=== PATIENT | female | born 1955 | race Two or more races ===

== ENCOUNTER → 2024-07-25 | Outpatient (CLI) | payer MEDICARE, MEDICAID, SELFPAY ==
[2024-07-25 13:24] LABS: Basophils # (Auto) 0.1 Thou/mm3 (0.0-0.2); Basophils % (Auto) 1 % (0-2.5); Eosinophils # (Auto) 0.2 Thou/mm3 (0.0-0.5); Eosinophils % (Auto) 2 % (0-10); Hematocrit 40.7 % (36.0-46.0); Hemoglobin 13.5 g/dL (12.0-16.0); Immature Granulocytes % (Auto) 0 % (0-0); Immature Granulocytes Auto 0.03 Thou/mm3 (0.00-0.00); Lymphocytes # (Auto) 1.9 Thou/mm3 (1.0-4.8); Lymphocytes % (Auto) 22 % (10-50); Mean Corpuscular HGB Conc 33.2 g/dl (31.0-37.0); Mean Corpuscular Hemoglobin 30.3 pg (25.0-35.0); Mean Corpuscular Volume 92 fL (80-100); Monocytes # (Auto) 0.5 Thou/mm3 (0.0-0.8); Monocytes % (Auto) 6 % (0-12); Neutrophils # (Auto) 5.9 Thou/mm3 (1.8-7.7); Neutrophils % (Auto) 69 % (37-80); Nucleated Red Blood Cell % 0 /100 WBC (0); Platelet Count 269 Thou/mm3 (140-440); RDW Standard Deviation 43.5 fL (36.4-46.3); Red Blood Count 4.45 Miln/mm3 (4.00-5.20); White Blood Count 8.7 Thou/mm3 (3.6-11.0)
[2024-07-25 13:39] LABS: Alanine Aminotransferase 110 U/L (10-49); Albumin, Serum 4.6 gm/dL (3.4-4.8); Albumin/Globulin Ratio 1.8 (1.2-2.2); Alkaline Phosphatase 79 U/L (46-116); Anion Gap 9 (7-16); Aspartate Amino Transferase 116 U/L (0-34); BUN/Creatinine Ratio 13 Ratio (12-20); Bilirubin,Total 0.8 mg/dL (0.3-1.2); Blood Urea Nitrogen 13 mg/dL (9-23); Calcium 9.3 mg/dL (8.3-10.6); Calcium (Corrected) 9.3 mg/dL (8.5-10.1); Carbon Dioxide 25.4 mMol/L (20.0-31.0); Chloride 101 mMol/L (98-107); Globulin 2.6 gm/dL (2.3-3.5); Glucose 196 mg/dL (74-106); Osmolality,Calculated 275 (275-295); Potassium 4.1 mMol/L (3.4-5.1); Sodium 135 mMol/L (136-145); Total Protein 7.2 gm/dL (5.7-8.2); eGFR > 60 See Note
== END | disposition home or self-care (01) ==
LOC: SCTO 11:35
PROVIDERS: PCP Family Medicine; Referring Provider Nurse Practitioner Family; Visit Provider Nurse Practitioner Family
DX: C50.512 Malignant neoplasm of lower-outer quadrant of left female breast (principal); C73 Malignant neoplasm of thyroid gland
CPT/HCPCS: 36415; 80053; 85025

== ENCOUNTER → 2024-07-26 | Outpatient (CLI) | payer MEDICARE, MEDICAID, SELFPAY ==
--- NOTE | 2024-07-26 13:30 | XR_ITS ---
Examination: Bilateral breast MRI without intravenous contrast Bilateral breast MRI with intravenous contrast Exam date and time: July 26, 2024 1420 hours INDICATIONS: Diagnosis malignant neoplasm lower outer quadrant left female breast, malignant neoplasm thyroid gland Left mastectomy 7 years ago TECHNIQUE AND FINDINGS: Multiple bilateral breast MRI images pre and post 15 cc gadolinium Scar formation and skin thickening left breast consistent with patient's history treated left breast cancer Scattered areas of fibroglandular density. Minimal background breast enhancement 3:00 cystic area left breast 2 x 1.5 cm which may represent seroma, clinical correlation advised Postcontrast images demonstrate no focus of rapid wash-in and washout No dominant breast mass lesion No chest wall mass No pathologic axillary lymphadenopathy IMPRESSION: BI-RADS Category 2: Benign findings
== END | disposition home or self-care (01) ==
LOC: SMRI 13:28
PROVIDERS: PCP Family Medicine; Referring Provider Nurse Practitioner Family; Visit Provider Nurse Practitioner Family
DX: C50.512 Malignant neoplasm of lower-outer quadrant of left female breast (principal); C73 Malignant neoplasm of thyroid gland
CPT/HCPCS: 77049; A9579; C8908

== ENCOUNTER 2024-08-10 08:45 | Outpatient (RCR) | payer MEDICARE, MEDICAID, SELFPAY | END 2024-08-22 23:59 | disposition home or self-care (01) | LOC: SCTC 08:45 | PROVIDERS: PCP Family Medicine; Referring Provider Family Medicine; Visit Provider Nurse Practitioner Family | DX: Z08 Encounter for follow-up examination after completed treatment for malignant neoplasm (principal); Z85.3 Personal history of malignant neoplasm of breast; Z85.850 Personal history of malignant neoplasm of thyroid; R91.1 Solitary pulmonary nodule | CPT/HCPCS: 99212; 99424; 99425; G0463 ==

== ENCOUNTER → 2024-08-18 | Outpatient (CLI) | payer MEDICARE, MEDICAID, SELFPAY ==
--- NOTE | 2024-08-18 09:00 | XR_ITS ---
Examination: Breast ultrasound, unilateral, left complete Date and time of exam: August 18, 2024 0915 hours INDICATIONS: Left breast pain one month, personal history left breast cancer, history multiple left breast cyst aspirations of 4:00 region, seroma accumulation Technique: Real-time cedillo scale ultrasonographic imaging performed left breast including all 4 quadrants as well as nipple retroareolar and axillary region. Findings: 3:00 seroma again noted, 1.5 x 0.7 x 1.9 cm IMPRESSION: 3:00 seroma again noted, 1.5 x 0.7 x 1.96
--- NOTE | 2024-08-18 09:14 | XR_ITS ---
Examination: Screening digital mammography, unilateral right Computer aided detection 3-D breast Tomosynthesis, unilateral Date and time of exam: August 18, 2024 0945 hours Compared to mammograms dating to October 06, 2016 Indication: Screening, personal history left breast cancer Technique: Nonmagnified MLO, CC views of the right breast to been obtained, reconstructed from 3-D Tomosynthesis images. R2 computer aided detection program utilized for evaluation of suspicious masses and/or abnormal calcifications. 3-D Tomosynthesis images obtained. Findings: Patient refused left mammography Scattered areas of fibroglandular density right breast Benign calcifications No interval suspicious masses Impression: BI-RADS category II Benign findings Recommend 1 year follow-up mammogram.
== END | disposition home or self-care (01) ==
LOC: CDIM 08:36
PROVIDERS: PCP Family Medicine; Referring Provider Nurse Practitioner Family; Visit Provider Nurse Practitioner Family
DX: Z12.31 Encounter for screening mammogram for malignant neoplasm of breast (principal); R92.323 Mammographic fibroglandular density, bilateral breasts; R92.1 Mammographic calcification found on diagnostic imaging of breast; S20.02XA Contusion of left breast, initial encounter; X58.XXXA Exposure to other specified factors, initial encounter; C50.512 Malignant neoplasm of lower-outer quadrant of left female breast
CPT/HCPCS: 76641; 77063; 77067

== ENCOUNTER 2024-09-21 09:03 | Outpatient (RCR) | payer MEDICARE, MEDICAID, SELFPAY ==
[2024-09-20 15:24] LABS: Basophils % (Auto) 1 % (0-2.5); Eosinophils # (Auto) 0.1 Thou/mm3 (0.0-0.5); Eosinophils % (Auto) 2 % (0-10); Hematocrit 36.9 % (36.0-46.0); Hemoglobin 12.7 g/dL (12.0-16.0); Immature Granulocytes % (Auto) 0 % (0-0); Immature Granulocytes Auto 0.02 Thou/mm3 (0.00-0.00); Lymphocytes # (Auto) 1.8 Thou/mm3 (1.0-4.8); Lymphocytes % (Auto) 22 % (10-50); Mean Corpuscular HGB Conc 34.4 g/dl (31.0-37.0); Mean Corpuscular Hemoglobin 30.4 pg (25.0-35.0); Mean Corpuscular Volume 88 fL (80-100); Monocytes # (Auto) 0.4 Thou/mm3 (0.0-0.8); Monocytes % (Auto) 6 % (0-12); Neutrophils # (Auto) 5.6 Thou/mm3 (1.8-7.7); Neutrophils % (Auto) 70 % (37-80); Nucleated Red Blood Cell % 0 /100 WBC (0); Platelet Count 236 Thou/mm3 (140-440); RDW Standard Deviation 41.6 fL (36.4-46.3); Red Blood Count 4.18 Miln/mm3 (4.00-5.20)
[2024-09-20 15:44] LABS: Alanine Aminotransferase 72 U/L (10-49); Albumin, Serum 4.4 gm/dL (3.4-4.8); Albumin/Globulin Ratio 1.8 (1.2-2.2); Alkaline Phosphatase 66 U/L (46-116); Anion Gap 8 (7-16); Aspartate Amino Transferase 56 U/L (0-34); BUN/Creatinine Ratio 14 Ratio (12-20); Bilirubin,Total 0.7 mg/dL (0.3-1.2); Blood Urea Nitrogen 13 mg/dL (9-23); Calcium 8.4 mg/dL (8.3-10.6); Calcium (Corrected) 8.4 mg/dL (8.5-10.1); Carbon Dioxide 25.9 mMol/L (20.0-31.0); Chloride 102 mMol/L (98-107); Creatinine (Component) 0.9 mg/dL (0.6-1.3); Globulin 2.5 gm/dL (2.3-3.5); Glucose 273 mg/dL (74-106); Osmolality,Calculated 282 (275-295); Potassium 3.6 mMol/L (3.4-5.1); Sodium 136 mMol/L (136-145); Total Protein 6.9 gm/dL (5.7-8.2); eGFR > 60 See Note
[2024-09-20 16:01] LABS: CA 15-3 7.2 U/mL (<32.4); Carcinoembryonic Antigen < 0.5 ng/mL (0.0-5.0)
== END 2024-09-22 23:59 | disposition home or self-care (01) ==
LOC: SCTC 09:03
PROVIDERS: PCP Family Medicine; Referring Provider Family Medicine; Visit Provider Radiology Therapeutic Radiology
DX: Z08 Encounter for follow-up examination after completed treatment for malignant neoplasm (principal); Z85.3 Personal history of malignant neoplasm of breast; Z90.12 Acquired absence of left breast and nipple; Z85.850 Personal history of malignant neoplasm of thyroid; Z92.3 Personal history of irradiation; E89.0 Postprocedural hypothyroidism; Z79.890 Hormone replacement therapy
CPT/HCPCS: 36591; 80053; 82378; 85025; 86300; 99213; A4216; J1642; G0463

== ENCOUNTER 2024-11-14 13:10 | Outpatient (RCR) | payer MEDICARE, MEDICAID, SELFPAY ==
[2024-11-13 14:24] LABS: Basophils # (Auto) 0.1 Thou/mm3 (0.0-0.2); Basophils % (Auto) 1 % (0-2.5); Eosinophils # (Auto) 0.2 Thou/mm3 (0.0-0.5); Eosinophils % (Auto) 3 % (0-10); Hematocrit 39.4 % (36.0-46.0); Hemoglobin 13.2 g/dL (12.0-16.0); Immature Granulocytes % (Auto) 0 % (0-0); Immature Granulocytes Auto 0.03 Thou/mm3 (0.00-0.00); Lymphocytes # (Auto) 1.8 Thou/mm3 (1.0-4.8); Lymphocytes % (Auto) 21 % (10-50); Mean Corpuscular HGB Conc 33.5 g/dl (31.0-37.0); Mean Corpuscular Hemoglobin 29.7 pg (25.0-35.0); Mean Corpuscular Volume 89 fL (80-100); Monocytes # (Auto) 0.5 Thou/mm3 (0.0-0.8); Monocytes % (Auto) 6 % (0-12); Neutrophils % (Auto) 70 % (37-80); Nucleated Red Blood Cell % 0 /100 WBC (0); Platelet Count 257 Thou/mm3 (140-440); RDW Standard Deviation 41.5 fL (36.4-46.3); Red Blood Count 4.45 Miln/mm3 (4.00-5.20); White Blood Count 8.6 Thou/mm3 (3.6-11.0)
[2024-11-13 14:39] LABS: Alanine Aminotransferase 81 U/L (10-49); Albumin, Serum 4.3 gm/dL (3.4-4.8); Albumin/Globulin Ratio 1.5 (1.2-2.2); Alkaline Phosphatase 74 U/L (46-116); Anion Gap 11 (7-16); Aspartate Amino Transferase 80 U/L (0-34); BUN/Creatinine Ratio 13 Ratio (12-20); Bilirubin,Total 1.1 mg/dL (0.3-1.2); Blood Urea Nitrogen 12 mg/dL (9-23); Calcium 9.1 mg/dL (8.3-10.6); Calcium (Corrected) 9.1 mg/dL (8.5-10.1); Carbon Dioxide 22.9 mMol/L (20.0-31.0); Chloride 103 mMol/L (98-107); Creatinine (Component) 0.9 mg/dL (0.6-1.3); Globulin 2.8 gm/dL (2.3-3.5); Glucose 260 mg/dL (74-106); Osmolality,Calculated 282 (275-295); Potassium 3.7 mMol/L (3.4-5.1); Sodium 137 mMol/L (136-145); Total Protein 7.1 gm/dL (5.7-8.2); eGFR > 60 See Note
[2024-11-13 15:04] LABS: CA 15-3 10.2 U/mL (<32.4); Carcinoembryonic Antigen 1.3 ng/mL (0.0-5.0)
== END 2024-11-20 23:59 | disposition home or self-care (01) ==
LOC: SCTC 13:10
PROVIDERS: Nurse Practitioner Family; Referring Provider Internal Medicine Hematology & Oncology; Visit Provider Internal Medicine Hematology & Oncology
DX: Z08 Encounter for follow-up examination after completed treatment for malignant neoplasm (principal); Z85.3 Personal history of malignant neoplasm of breast; Z85.850 Personal history of malignant neoplasm of thyroid; Z90.12 Acquired absence of left breast and nipple; N64.89 Other specified disorders of breast; R91.1 Solitary pulmonary nodule; Z63.6 Dependent relative needing care at home
CPT/HCPCS: 36591; 80053; 82378; 85025; 86300; 99211; 99212; A4216; J1642; G0463

== ENCOUNTER 2024-12-21 13:40 | Outpatient (RCR) | payer MEDICARE, MEDICAID, SELFPAY | END 2025-01-20 23:59 | disposition home or self-care (01) | LOC: SCTC 13:40 | PROVIDERS: PCP Family Medicine; Referring Provider Family Medicine; Visit Provider Nurse Practitioner Family | DX: N64.89 Other specified disorders of breast (principal); Z85.850 Personal history of malignant neoplasm of thyroid; Z79.890 Hormone replacement therapy; R91.1 Solitary pulmonary nodule; Z85.3 Personal history of malignant neoplasm of breast | CPT/HCPCS: 99212; G0463 ==

== ENCOUNTER → 2025-01-11 | Outpatient (CLI) | payer MEDICARE, MEDICAID, SELFPAY ==
--- NOTE | 2025-01-11 13:15 | XR_ITS ---
EXAMINATION: PET/CT FUSION SKULL TO THIGH EXAM DATE AND TIME: January 11, 2025 1358 hours Comparison 04/27/2024, MR breast July 26, 2024, CT chest October 25, 2023 INDICATIONS: Diagnosis thyroid carcinoma post treatment CTDI:vol (mGy) 5.72 DLP: (mGycm) 522.85 PROCEDURE: 15.5 mCi FDG was administered intravenously To allow for distribution and uptake of radiotracer, the patient was allowed to rest quietly in a shielded room. Imaging was performed on an integrated 16-slice PET/CT scanner, with scanning from the skull base to the mid thigh. Serum blood glucose at the time of the injection was measured 110 mg/dL. CT scanning was performed without oral or intravenous contrast material. FINDINGS: Head and Neck: There is no patt hypermetabolism in the neck. The visualized portions of the brain are normal in appearance on CT. Chest: Interval hypermetabolic anterior mediastinal 14 mm lymph node Abdomen and Pelvis: There is no patt hypermetabolism in retroperitoneal or pelvic chains. The spleen is normal in size and FDG avidity. Musculoskeletal: Marrow uptake is within normal range. IMPRESSION: Interval hypermetabolic anterior mediastinal 14 mm lymph node, recommend high-resolution CT chest post intravenous contrast follow-up
== END | disposition home or self-care (01) ==
LOC: CDIM 12:46
PROVIDERS: PCP Family Medicine; Referring Provider Nurse Practitioner Family; Visit Provider Nurse Practitioner Family
DX: C50.512 Malignant neoplasm of lower-outer quadrant of left female breast (principal); C73 Malignant neoplasm of thyroid gland
CPT/HCPCS: 78815; A9552

== ENCOUNTER → 2025-01-16 | Outpatient (CLI) | payer MEDICARE, MEDICAID, SELFPAY ==
[2025-01-12 11:27] LABS: Basophils % (Auto) 1 % (0-2.5); Eosinophils # (Auto) 0.2 Thou/mm3 (0.0-0.5); Eosinophils % (Auto) 3 % (0-10); Hematocrit 42.3 % (36.0-46.0); Hemoglobin 14.8 g/dL (12.0-16.0); Immature Granulocytes % (Auto) 0 % (0-0); Immature Granulocytes Auto 0.02 Thou/mm3 (0.00-0.00); Lymphocytes # (Auto) 1.6 Thou/mm3 (1.0-4.8); Lymphocytes % (Auto) 23 % (10-50); Mean Corpuscular Hemoglobin 30.1 pg (25.0-35.0); Mean Corpuscular Volume 86 fL (80-100); Monocytes # (Auto) 0.4 Thou/mm3 (0.0-0.8); Monocytes % (Auto) 6 % (0-12); Neutrophils # (Auto) 4.7 Thou/mm3 (1.8-7.7); Neutrophils % (Auto) 68 % (37-80); Nucleated Red Blood Cell % 0 /100 WBC (0); Platelet Count 281 Thou/mm3 (140-440); RDW Standard Deviation 40.6 fL (36.4-46.3); Red Blood Count 4.91 Miln/mm3 (4.00-5.20)
[2025-01-12 11:46] LABS: Partial Thromboplastin Time 29.1 Seconds (22.0-36.0); Prothrombin Time 11.4 Seconds (9.0-12.2)
--- NOTE | 2025-01-16 09:30 | XR_ITS ---
Examination: Ultrasound-guided aspiration left breast 3:00 seroma Left breast sonogram limited Date and time: January 16, 2025 1027 hours INDICATIONS: History left breast cancer, history 3:00 seroma 15 x 7 x 19 mm on left breast sonogram August 18, 2024 TECHNIQUE AND FINDINGS: Sonographic images left breast 3:00 demonstrate 2.2 cm seroma Informed consent provided. Timeout performed. Skin prepped over the left breast sterile drape applied hand hygiene ultrasound sterile technique 1% lidocaine administered for local anesthesia Utilizing ultrasonographic guidance complete aspiration of the seroma, 3 cc clear yellow fluid withdrawn IMPRESSION: Successful ultrasound-guided aspiration left breast 3:00 seroma
== END | disposition home or self-care (01) ==
LOC: SDIM 08:45
PROVIDERS: Radiology Diagnostic Radiology; PCP Family Medicine; Referring Provider Nurse Practitioner Family; Visit Provider Nurse Practitioner Family
DX: R92.8 Other abnormal and inconclusive findings on diagnostic imaging of breast (principal); C50.512 Malignant neoplasm of lower-outer quadrant of left female breast; C73 Malignant neoplasm of thyroid gland; Z01.812 Encounter for preprocedural laboratory examination
CPT/HCPCS: 19083; 36415; 85025; 85610; 85730

== ENCOUNTER 2025-02-19 13:29 | Outpatient (RCR) | payer MEDICARE, MEDICAID, SELFPAY ==
[2025-01-23 15:02] LABS: Basophils % (Auto) 1 % (0-2.5); Eosinophils # (Auto) 0.3 Thou/mm3 (0.0-0.5); Eosinophils % (Auto) 4 % (0-10); Hematocrit 37.9 % (36.0-46.0); Hemoglobin 13.6 g/dL (12.0-16.0); Immature Granulocytes % (Auto) 0 % (0-0); Immature Granulocytes Auto 0.02 Thou/mm3 (0.00-0.00); Lymphocytes # (Auto) 1.7 Thou/mm3 (1.0-4.8); Lymphocytes % (Auto) 21 % (10-50); Mean Corpuscular HGB Conc 35.9 g/dl (31.0-37.0); Mean Corpuscular Hemoglobin 30.5 pg (25.0-35.0); Mean Corpuscular Volume 85 fL (80-100); Monocytes # (Auto) 0.6 Thou/mm3 (0.0-0.8); Monocytes % (Auto) 7 % (0-12); Neutrophils # (Auto) 5.6 Thou/mm3 (1.8-7.7); Neutrophils % (Auto) 67 % (37-80); Nucleated Red Blood Cell % 0 /100 WBC (0); Platelet Count 272 Thou/mm3 (140-440); RDW Standard Deviation 40.3 fL (36.4-46.3); Red Blood Count 4.46 Miln/mm3 (4.00-5.20); White Blood Count 8.3 Thou/mm3 (3.6-11.0)
[2025-01-23 15:23] LABS: Alanine Aminotransferase 71 U/L (10-49); Albumin, Serum 4.3 gm/dL (3.4-4.8); Albumin/Globulin Ratio 1.7 (1.2-2.2); Alkaline Phosphatase 69 U/L (46-116); Anion Gap 13 (7-16); Aspartate Amino Transferase 59 U/L (0-34); BUN/Creatinine Ratio 15 Ratio (12-20); Bilirubin,Total 1.4 mg/dL (0.3-1.2); Blood Urea Nitrogen 12 mg/dL (9-23); Calcium 8.1 mg/dL (8.3-10.6); Calcium (Corrected) 8.1 mg/dL (8.5-10.1); Carbon Dioxide 24.7 mMol/L (20.0-31.0); Chloride 105 mMol/L (98-107); Creatinine (Component) 0.8 mg/dL (0.6-1.3); Globulin 2.6 gm/dL (2.3-3.5); Glucose 166 mg/dL (74-106); Osmolality,Calculated 288 (275-295); Potassium 3.8 mMol/L (3.4-5.1); Sodium 143 mMol/L (136-145); Total Protein 6.9 gm/dL (5.7-8.2); eGFR > 60 See Note
[2025-01-23 15:27] LABS: Carcinoembryonic Antigen < 0.5 ng/mL (0.0-5.0)
[2025-01-23 15:41] LABS: CA 15-3 5.5 U/mL (<32.4)
[2025-02-19 15:15] LABS: Basophils # (Auto) 0.1 Thou/mm3 (0.0-0.2); Basophils % (Auto) 1 % (0-2.5); Eosinophils # (Auto) 0.2 Thou/mm3 (0.0-0.5); Eosinophils % (Auto) 3 % (0-10); Hemoglobin 12.7 g/dL (12.0-16.0); Immature Granulocytes % (Auto) 0 % (0-0); Immature Granulocytes Auto 0.03 Thou/mm3 (0.00-0.00); Lymphocytes # (Auto) 1.7 Thou/mm3 (1.0-4.8); Lymphocytes % (Auto) 21 % (10-50); Mean Corpuscular HGB Conc 34.3 g/dl (31.0-37.0); Mean Corpuscular Hemoglobin 30.1 pg (25.0-35.0); Mean Corpuscular Volume 88 fL (80-100); Monocytes # (Auto) 0.5 Thou/mm3 (0.0-0.8); Monocytes % (Auto) 6 % (0-12); Neutrophils # (Auto) 5.6 Thou/mm3 (1.8-7.7); Neutrophils % (Auto) 69 % (37-80); Nucleated Red Blood Cell % 0 /100 WBC (0); Platelet Count 272 Thou/mm3 (140-440); RDW Standard Deviation 41.6 fL (36.4-46.3); Red Blood Count 4.22 Miln/mm3 (4.00-5.20); White Blood Count 8.2 Thou/mm3 (3.6-11.0)
[2025-02-19 15:37] LABS: Alanine Aminotransferase 50 U/L (10-49); Albumin, Serum 4.1 gm/dL (3.4-4.8); Albumin/Globulin Ratio 1.6 (1.2-2.2); Alkaline Phosphatase 63 U/L (46-116); Anion Gap 8 (7-16); Aspartate Amino Transferase 34 U/L (0-34); BUN/Creatinine Ratio 12 Ratio (12-20); Bilirubin,Total 1.1 mg/dL (0.3-1.2); Blood Urea Nitrogen 11 mg/dL (9-23); Calcium 8.1 mg/dL (8.3-10.6); Calcium (Corrected) 8.1 mg/dL (8.5-10.1); Carbon Dioxide 23.9 mMol/L (20.0-31.0); Chloride 109 mMol/L (98-107); Creatinine (Component) 0.9 mg/dL (0.6-1.3); Globulin 2.6 gm/dL (2.3-3.5); Glucose 171 mg/dL (74-106); Osmolality,Calculated 284 (275-295); Potassium 3.8 mMol/L (3.4-5.1); Sodium 141 mMol/L (136-145); Total Protein 6.7 gm/dL (5.7-8.2); eGFR > 60 See Note
[2025-02-19 15:51] LABS: CA 15-3 6.7 U/mL (<32.4); Carcinoembryonic Antigen < 0.5 ng/mL (0.0-5.0)
== END 2025-02-19 23:59 | disposition home or self-care (01) ==
LOC: SCTC 13:29
PROVIDERS: Internal Medicine Hematology & Oncology; PCP Family Medicine; Referring Provider Family Medicine; Visit Provider Radiology Therapeutic Radiology
DX: Z08 Encounter for follow-up examination after completed treatment for malignant neoplasm (principal); Z85.3 Personal history of malignant neoplasm of breast; Z85.850 Personal history of malignant neoplasm of thyroid; N64.89 Other specified disorders of breast; Z90.12 Acquired absence of left breast and nipple; E89.0 Postprocedural hypothyroidism; Z79.890 Hormone replacement therapy; R91.1 Solitary pulmonary nodule
CPT/HCPCS: 36591; 80053; 82378; 85025; 86300; A4216; J1642

== ENCOUNTER 2025-03-14 08:34 | Outpatient (RCR) | payer MEDICARE, MEDICAID, SELFPAY ==
[2025-03-14 10:05] LABS: Basophils # (Auto) 0.1 Thou/mm3 (0.0-0.2); Basophils % (Auto) 1 % (0-2.5); Eosinophils # (Auto) 0.1 Thou/mm3 (0.0-0.5); Eosinophils % (Auto) 2 % (0-10); Hematocrit 39.8 % (36.0-46.0); Hemoglobin 13.9 g/dL (12.0-16.0); Immature Granulocytes Auto 0.02 Thou/mm3 (0.00-0.00); Lymphocytes # (Auto) 1.6 Thou/mm3 (1.0-4.8); Lymphocytes % (Auto) 18 % (10-50); Mean Corpuscular HGB Conc 34.9 g/dl (31.0-37.0); Mean Corpuscular Hemoglobin 30.2 pg (25.0-35.0); Mean Corpuscular Volume 86 fL (80-100); Monocytes # (Auto) 0.5 Thou/mm3 (0.0-0.8); Monocytes % (Auto) 6 % (0-12); Neutrophils # (Auto) 6.5 Thou/mm3 (1.8-7.7); Neutrophils % (Auto) 74 % (37-80); Nucleated Red Blood Cell # 0.00 Thou/mm3 (0.00-0.00); Nucleated Red Blood Cell % 0 /100 WBC (0); Platelet Count 250 Thou/mm3 (140-440); RDW Standard Deviation 40.7 fL (36.4-46.3); Red Blood Count 4.61 Miln/mm3 (4.00-5.20); White Blood Count 8.8 Thou/mm3 (3.6-11.0)
[2025-03-14 10:26] LABS: Alanine Aminotransferase 34 U/L (10-49); Albumin, Serum 4.5 gm/dL (3.4-4.8); Albumin/Globulin Ratio 1.8 (1.2-2.2); Alkaline Phosphatase 69 U/L (46-116); Anion Gap 9 (7-16); Aspartate Amino Transferase 30 U/L (0-34); BUN/Creatinine Ratio 11 Ratio (12-20); Bilirubin,Total 1.4 mg/dL (0.3-1.2); Blood Urea Nitrogen 9 mg/dL (9-23); Calcium 9.6 mg/dL (8.3-10.6); Calcium (Corrected) 9.6 mg/dL (8.5-10.1); Carbon Dioxide 24.6 mMol/L (20.0-31.0); Chloride 106 mMol/L (98-107); Creatinine (Component) 0.8 mg/dL (0.6-1.3); Free T4 (Free Thyroxine) 1.68 ng/dL (0.89-1.76); Globulin 2.5 gm/dL (2.3-3.5); Glucose 125 mg/dL (74-106); Osmolality,Calculated 279 (275-295); Potassium 3.8 mMol/L (3.4-5.1); Sodium 140 mMol/L (136-145); Thyroid Stimulating Hormone 0.71 uIU/mL (0.55-4.78); Total Protein 7.0 gm/dL (5.7-8.2); eGFR > 60 See Note
[2025-03-14 10:40] LABS: CA 15-3 4.6 U/mL (<32.4); Carcinoembryonic Antigen < 0.5 ng/mL (0.0-5.0)
[2025-03-23 06:19] LABS: Thyroglobulin <0.1 ng/mL; Thyroglobulin Antibodies SEE SEP RPT IU/mL (< OR = 1)
[2025-03-23 06:26] LABS: Thyroglobulin Antibodies* DUPLICATE TEST
== END 2025-03-22 23:59 | disposition home or self-care (01) ==
LOC: SCTC 08:34
PROVIDERS: Radiology Therapeutic Radiology; PCP Family Medicine; Referring Provider Family Medicine; Visit Provider Nurse Practitioner Family
DX: R20.0 Anesthesia of skin (principal); Z08 Encounter for follow-up examination after completed treatment for malignant neoplasm; Z85.3 Personal history of malignant neoplasm of breast; Z85.850 Personal history of malignant neoplasm of thyroid; I89.0 Lymphedema, not elsewhere classified; R91.1 Solitary pulmonary nodule
CPT/HCPCS: 36591; 80053; 82378; 84432; 84439; 84443; 85025; 86300; 86800; 99212; A4216; J1642; G0463

== ENCOUNTER → 2025-04-03 | Outpatient (CLI) | payer MEDICARE, MEDICAID, SELFPAY ==
[2025-04-03 12:56] LABS: Free T4 (Free Thyroxine) 1.21 ng/dL (0.89-1.76); Thyroid Stimulating Hormone 2.72 uIU/mL (0.55-4.78)
[2025-04-06 13:48] LABS: Thyroglobulin Antibodies <1 IU/mL (< OR = 1)
[2025-04-09 06:49] LABS: Thyroglobulin <0.1 ng/mL
== END | disposition home or self-care (01) ==
LOC: SCTO 11:25
PROVIDERS: PCP Family Medicine; Referring Provider Radiology Therapeutic Radiology; Visit Provider Radiology Therapeutic Radiology
DX: C50.512 Malignant neoplasm of lower-outer quadrant of left female breast (principal); C73 Malignant neoplasm of thyroid gland
CPT/HCPCS: 36415; 84432; 84439; 84443; 86800

== ENCOUNTER 2025-04-10 13:26 | Outpatient (RCR) | payer MEDICARE, MEDICAID, SELFPAY ==
--- NOTE | 2025-04-10 14:52 | CTCFLWUP_ITS ---
[facility] [address] [place], [place] [address] FOLLOW-UP NOTE Date: 04/10/2025 MR#: [id number] Name: DIGNA STANFORD : 1955 Dx: C50.512 Malignant neoplasm of lower-outer quadrant of left female breast Identification. History of stage Ia ER negative MA negative HER2/yael overexpressed left breast CA 10/06/2016. After partial mastectomy underwent 6 cycles of TCH 1 year of Herceptin completed 2017. Postop XRT completed 07/23/2017. Being followed by RASHEL Glover and Dr. Jackson. PET scan 01/11/2025 interval hypermetabolic anterior mediastinal 14 mm lymph node. Left breast biopsy 3:00 cytology no malignancy seen. Ultrasound aspiration of the 3:00 seroma. 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 Whole-body iodine scan 2019 following 100 mCi no sign of mets. Labs 03/14/2025 thyroglobulin less than 0.1 euthyroid at Synthroid 112 mcg. Examined the patient today reveals no sign of recurrence in the neck lungs clear. A#1. History of stage II papillary thyroid carcinoma status post total thyroidectomy and radioactive iodine 2018. On 112 mcg of Synthroid. Euthyroid with low thyroglobulin and no sign of recurrence. Asked her to return in 4 months. A#2. History of stage Ia receptor negative HER2/yael overexpressed left breast CA. 2016 being followed by [facility]/Dr. Jcakson Electronically signed by: Evaristo Leonardo M.D. 04/10/2025 2:50 PM
== END 2025-04-22 23:59 | disposition home or self-care (01) ==
LOC: SCTC 13:26
PROVIDERS: PCP Family Medicine; Referring Provider Family Medicine; Visit Provider Radiology Therapeutic Radiology
DX: Z08 Encounter for follow-up examination after completed treatment for malignant neoplasm (principal); Z85.3 Personal history of malignant neoplasm of breast; Z85.850 Personal history of malignant neoplasm of thyroid; Z90.12 Acquired absence of left breast and nipple; Z92.21 Personal history of antineoplastic chemotherapy; Z92.3 Personal history of irradiation; N64.89 Other specified disorders of breast; E89.0 Postprocedural hypothyroidism; Z79.890 Hormone replacement therapy
CPT/HCPCS: 99213; G0463

== ENCOUNTER → 2025-04-24 | Outpatient (CLI) | payer MEDICARE, MEDICAID, SELFPAY ==
[2025-04-24 14:31] LABS: Basophils # (Auto) 0.0 Thou/mm3 (0.0-0.2); Basophils % (Auto) 1 % (0-2.5); Eosinophils # (Auto) 0.1 Thou/mm3 (0.0-0.5); Eosinophils % (Auto) 3 % (0-10); Hematocrit 41.7 % (36.0-46.0); Hemoglobin 13.9 g/dL (12.0-16.0); Immature Granulocytes Auto 0.01 Thou/mm3 (0.00-0.00); Lymphocytes # (Auto) 1.4 Thou/mm3 (1.0-4.8); Lymphocytes % (Auto) 26 % (10-50); Mean Corpuscular HGB Conc 33.3 g/dl (31.0-37.0); Mean Corpuscular Hemoglobin 30.0 pg (25.0-35.0); Mean Corpuscular Volume 90 fL (80-100); Monocytes # (Auto) 0.4 Thou/mm3 (0.0-0.8); Monocytes % (Auto) 8 % (0-12); Neutrophils # (Auto) 3.3 Thou/mm3 (1.8-7.7); Neutrophils % (Auto) 62 % (37-80); Nucleated Red Blood Cell # 0.00 Thou/mm3 (0.00-0.00); Nucleated Red Blood Cell % 0 /100 WBC (0); Platelet Count 230 Thou/mm3 (140-440); RDW Standard Deviation 44.1 fL (36.4-46.3); Red Blood Count 4.64 Miln/mm3 (4.00-5.20); White Blood Count 5.3 Thou/mm3 (3.6-11.0)
[2025-04-24 14:50] LABS: Alanine Aminotransferase 45 U/L (10-49); Albumin, Serum 4.4 gm/dL (3.4-4.8); Albumin/Globulin Ratio 1.8 (1.2-2.2); Alkaline Phosphatase 64 U/L (46-116); Anion Gap 10 (7-16); Aspartate Amino Transferase 43 U/L (0-34); BUN/Creatinine Ratio 16 Ratio (12-20); Bilirubin,Total 1.1 mg/dL (0.3-1.2); Blood Urea Nitrogen 14 mg/dL (9-23); Calcium 9.6 mg/dL (8.3-10.6); Calcium (Corrected) 9.6 mg/dL (8.5-10.1); Carbon Dioxide 28.3 mMol/L (20.0-31.0); Chloride 104 mMol/L (98-107); Creatinine (Component) 0.9 mg/dL (0.6-1.3); Globulin 2.4 gm/dL (2.3-3.5); Glucose 125 mg/dL (74-106); Osmolality,Calculated 284 (275-295); Potassium 4.2 mMol/L (3.4-5.1); Sodium 142 mMol/L (136-145); Total Protein 6.8 gm/dL (5.7-8.2); eGFR > 60 See Note
== END | disposition home or self-care (01) ==
LOC: SCTO 12:49
PROVIDERS: PCP Family Medicine; Referring Provider Nurse Practitioner Family; Visit Provider Nurse Practitioner Family
DX: C50.512 Malignant neoplasm of lower-outer quadrant of left female breast (principal); C73 Malignant neoplasm of thyroid gland
CPT/HCPCS: 36415; 80053; 85025

== ENCOUNTER → 2025-05-01 | Outpatient (CLI) | payer MEDICARE, MEDICAID, SELFPAY ==
--- NOTE | 2025-05-01 09:46 | XR_ITS ---
Examination: CT chest with intravenous contrast 2-D sagittal and coronal reconstructions Exam date and time: May 01, 2025 1029 hours, comparison October 25, 2023 INDICATIONS: Diagnosis malignant neoplasm left breast 2017 CTDI:vol (mGy) 10.1 DLP: (mGycm) 351 Technique: Multiple axial sections of the thorax have been obtained. Sections have been obtained, 3 mm slice thickness. Mediastinal and lung density settings have been obtained. Intravenous contrast administered, 60 cc Isovue-370. 2-D sagittal, coronal images obtained. Low dose protocols were performed. One or more of the following dose reduction techniques were used; automated exposure control, adjustment of the mA and/or KV according to patient size, use of iterative reconstruction technique. Findings: No thoracic aortic aneurysmal dilatation 14 mm lymph node anterior to the ascending thoracic aorta No thoracic aortic aneurysmal dilatation No pulmonary artery emboli 2 mm pulmonary nodule posterior left lung image 181 3 mm pulmonary nodule anterior right lung image 183 2 mm pulmonary nodule lingular segment image 198 No pneumonia or pulmonary edema Probable scar formation left breast axial image 82 No pathologic axillary lymphadenopathy No visualized liver or splenic lesion No pancreatic or adrenal mass IMPRESSION: 14 mm lymph node anterior to the ascending thoracic aorta, please see the PET/CT scan January 11, 2025 Subcentimeter pulmonary nodules as above, recommend 6 month follow-up CT chest without contrast No pneumonia or pulmonary edema
== END | disposition home or self-care (01) ==
LOC: CCTX 09:01
PROVIDERS: PCP Family Medicine; Referring Provider Nurse Practitioner Family; Visit Provider Nurse Practitioner Family
DX: R91.8 Other nonspecific abnormal finding of lung field (principal); C50.512 Malignant neoplasm of lower-outer quadrant of left female breast; C73 Malignant neoplasm of thyroid gland
CPT/HCPCS: 71260; A4649; Q9967

== ENCOUNTER → 2025-05-04 | Outpatient (CLI) | payer MEDICARE, MEDICAID, SELFPAY ==
[2025-05-04 11:11] LABS: Misc Send Out* See Sep Rpt
[2025-05-04 11:40] LABS: Basophils # (Auto) 0.0 Thou/mm3 (0.0-0.2); Basophils % (Auto) 1 % (0-2.5); Eosinophils # (Auto) 0.2 Thou/mm3 (0.0-0.5); Eosinophils % (Auto) 2 % (0-10); Hematocrit 42.6 % (36.0-46.0); Hemoglobin 14.8 g/dL (12.0-16.0); Immature Granulocytes Auto 0.05 Thou/mm3 (0.00-0.00); Lymphocytes # (Auto) 1.6 Thou/mm3 (1.0-4.8); Lymphocytes % (Auto) 20 % (10-50); Mean Corpuscular HGB Conc 34.7 g/dl (31.0-37.0); Mean Corpuscular Hemoglobin 30.7 pg (25.0-35.0); Mean Corpuscular Volume 88 fL (80-100); Monocytes # (Auto) 0.5 Thou/mm3 (0.0-0.8); Monocytes % (Auto) 6 % (0-12); Neutrophils # (Auto) 6.0 Thou/mm3 (1.8-7.7); Neutrophils % (Auto) 71 % (37-80); Nucleated Red Blood Cell # 0.00 Thou/mm3 (0.00-0.00); Nucleated Red Blood Cell % 0 /100 WBC (0); Platelet Count 306 Thou/mm3 (140-440); RDW Standard Deviation 41.8 fL (36.4-46.3); Red Blood Count 4.82 Miln/mm3 (4.00-5.20); White Blood Count 8.4 Thou/mm3 (3.6-11.0)
[2025-05-04 11:57] LABS: Sed Rate (ESR) 11 mm/hr (0-30)
[2025-05-04 12:06] LABS: Alanine Aminotransferase 32 U/L (10-49); Albumin, Serum 4.6 gm/dL (3.4-4.8); Albumin/Globulin Ratio 1.6 (1.2-2.2); Alkaline Phosphatase 61 U/L (46-116); Anion Gap 11 (7-16); Aspartate Amino Transferase 28 U/L (0-34); BUN/Creatinine Ratio 10 Ratio (12-20); Bilirubin,Total 1.4 mg/dL (0.3-1.2); Blood Urea Nitrogen 9 mg/dL (9-23); C-Reactive Protein < 0.5 mg/dL (0.0-0.9); Calcium 9.8 mg/dL (8.3-10.6); Calcium (Corrected) 9.8 mg/dL (8.5-10.1); Carbon Dioxide 24.6 mMol/L (20.0-31.0); Chloride 103 mMol/L (98-107); Creatinine (Component) 0.9 mg/dL (0.6-1.3); Globulin 2.9 gm/dL (2.3-3.5); Glucose 74 mg/dL (74-106); Osmolality,Calculated 275 (275-295); Potassium 3.8 mMol/L (3.4-5.1); Sodium 139 mMol/L (136-145); Total Protein 7.5 gm/dL (5.7-8.2); eGFR > 60 See Note
[2025-05-11 06:32] LABS: Immunoglobulin A 221 mg/dL (70-320); tTG Ab, IgA <1.0 U/mL
== END | disposition home or self-care (01) ==
LOC: COPL 10:29
PROVIDERS: PCP Family Medicine; Referring Provider Specialist; Visit Provider Specialist
DX: R19.7 Diarrhea, unspecified (principal)
CPT/HCPCS: 36415; 80053; 82784; 85025; 85652; 86140; 86364

== ENCOUNTER → 2025-05-07 | Outpatient (CLI) | payer MEDICARE, MEDICAID, SELFPAY ==
[2025-05-14 09:21] LABS: Calprotectin, Stool* 42 mcg/g
== END | disposition home or self-care (01) ==
LOC: SLDO 09:35
PROVIDERS: PCP Specialist; Referring Provider Specialist; Visit Provider Specialist
DX: R19.7 Diarrhea, unspecified (principal)
CPT/HCPCS: 83993

== ENCOUNTER 2025-05-28 13:19 | Outpatient (RCR) | payer MEDICARE, MEDICAID, SELFPAY | END 2025-06-22 23:59 | disposition home or self-care (01) | LOC: SCTC 13:19 | PROVIDERS: PCP Family Medicine; Referring Provider Nurse Practitioner Family; Visit Provider Nurse Practitioner Family | DX: Z08 Encounter for follow-up examination after completed treatment for malignant neoplasm (principal); Z85.3 Personal history of malignant neoplasm of breast; Z85.850 Personal history of malignant neoplasm of thyroid; R91.1 Solitary pulmonary nodule; Z87.2 Personal history of diseases of the skin and subcutaneous tissue; E89.0 Postprocedural hypothyroidism; Z79.890 Hormone replacement therapy; Z90.12 Acquired absence of left breast and nipple; Z92.21 Personal history of antineoplastic chemotherapy; Z92.3 Personal history of irradiation | CPT/HCPCS: 99212; G0463 ==

== ENCOUNTER 2025-06-13 09:33 | Day surgery (SDC) | payer MEDICARE, MEDICAID, SELFPAY ==
[2025-06-12 11:57] VITALS: BMI 26.7
[2025-06-13] VITALS (10 sets, daily range): BP systolic 138–166; BP diastolic 51–101; PULSE 71–94; RESP 13–21; TEMP 36.3–36.8; O2SAT 97–100; BMI 26.4
[2025-06-13] MEDS: SODIUM CHLORIDE 0.9% 500 ML 500 ML 20 ML IV (11:11)
[2025-06-13] MEDS: fentaNYL CIT INJ 50 mCg/ML AMP 2ML (ASD USE ONLY) IVP (11:13)
[2025-06-13] MEDS: MIDAZOLAM INJ 1 MG/ML VIAL 2 ML (ASD USE ONLY) 2 MG IVP (11:13)
[2025-06-13] MEDS: SIMETHICONE 40 MG/0.6 ML ORAL SYRINGE PO (11:15)
== END 2025-06-13 12:16 | disposition home or self-care (01) ==
PROVIDERS: PCP Family Medicine; Referring Provider Specialist; Visit Provider Specialist
PROC: 0DBE8ZX Excision of Large Intestine, Via Natural or Artificial Opening Endoscopic, Diagnostic (ICD-10-PCS; CPT 45380; principal; 2025-06-13 10:15)
DX: K52.9 Noninfective gastroenteritis and colitis, unspecified (principal); K63.89 Other specified diseases of intestine; K62.89 Other specified diseases of anus and rectum; K64.1 Second degree hemorrhoids; K57.30 Diverticulosis of large intestine without perforation or abscess without bleeding; E03.9 Hypothyroidism, unspecified; E11.9 Type 2 diabetes mellitus without complications; Z79.890 Hormone replacement therapy; Z79.84 Long term (current) use of oral hypoglycemic drugs
CPT/HCPCS: 45380; A4649; J1200; J2250; J3010; J7999; A9270